=== PATIENT | male | born 1985 | race Caucasian/White ===

== ENCOUNTER → 2024-07-22 | Outpatient (CLI) | payer BC, SELFPAY ==
[2024-07-22 17:59] LABS: Thyroid Stimulating Hormone 2.64 uIU/mL (0.55-4.78)
== END | disposition home or self-care (01) ==
LOC: COPL 16:04
PROVIDERS: PCP Family Medicine; Referring Provider Family Medicine; Visit Provider Family Medicine
DX: E03.9 Hypothyroidism, unspecified (principal)
CPT/HCPCS: 36415; 84443

== ENCOUNTER → 2024-09-05 | Outpatient (CLI) | payer BC, SELFPAY ==
--- NOTE | 2024-09-05 16:00 | XR_ITS ---
Examination: Thyroid sonography complete TECHNIQUE: Dominguez scale sonographic images thyroid lobes,. Date and time: September 05, 2024 1616 hours INDICATIONS: Throat pain beginning several months ago FINDINGS: Right thyroid 4.9 cm No solid nodules Left thyroid 4.7 cm No solid nodules IMPRESSION: Negative study.
[2024-09-12 09:34] LABS: Testosterone, Free,Dialysis 119.0 pg/mL (35.0-155.0); Testosterone, Total, Dialysis 756 ng/dL (250-1100)
== END | disposition home or self-care (01) ==
LOC: CDIM 15:56 → COPL 16:26
PROVIDERS: PCP Family Medicine; Referring Provider Family Medicine; Visit Provider Nurse Practitioner Family
DX: E04.1 Nontoxic single thyroid nodule (principal); R53.83 Other fatigue
CPT/HCPCS: 36415; 76536; 84402; 84403